=== PATIENT | male | born 1995 | race Caucasian/White ===

== ENCOUNTER 2018-07-27 13:25 | Emergency (ER) | payer SELFPAY ==
[~2018-07-27] VITALS: Ht 167.6 cm; Wt 71.6 kg
[2018-07-27 13:36] VITALS: BP 138/89; PULSE 78; RESP 18; Ht 167.6 cm; Wt 71.6 kg
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
[2018-07-27] MEDS ORDERED: ACETAMINOPHEN 325 MG TAB PO ONE (14:30)
[2018-07-27] MEDS ORDERED: IBUPROFEN 200 MG TAB PO ONE (14:30)
[2018-07-27] MEDS ORDERED: ACET325T33 PO (15:36)
[2018-07-27] MEDS ORDERED: IBUP-1561 PO (15:36)
== END 2018-07-27 15:43 | disposition home or self-care (01) ==
LOC: FTE 13:25
DX: M54.2 Cervicalgia (principal)
CPT/HCPCS: 72040